=== PATIENT | female | born 1985 | race Caucasian/White ===

== ENCOUNTER 2021-05-03 15:48 | Emergency (ER) | payer OTHER, SELFPAY ==
[2021-05-03 16:06] VITALS: BP 174/113; PULSE 109; RESP 16; TEMP 36.8; O2SAT 100; BMI 74.8
--- NOTE | 2021-05-03 16:21 | ED.BACK ---
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 During COVID, patient was not sitting in her wheelchair. She intentionally lost over 100 lb. She has less having than she used to for sitting. She is a teacher, and has recently been back to work, and in the last 3 days sitting in her wheelchair 9 hours a day, the back pain has worsened. No fevers, no bowel or bladder incontinence, no IV drug use, no personal history of cancer. This feels similar to her other sciatic episodes that she has had. No trauma. MD elicited complaint: back pain Pertinent past history: prior back pain Onset (ago): day(s) (3) Timing: constant Severity: moderate Pain scale (0-10): 6 Similar Symptoms Previously: Yes Quality: burning and aching Location: left lower back Radiation: buttocks and left upper leg Exacerbating factors: none Relieving factors: none Associated symptoms: denies other symptoms Work related injury: No Related Data Previous Rx's Medication Instructions Recorded diazepam 5 mg tablet (Valium) 5 mg PO BID PRN 5 Days #10 tab 05/03/21 ketorolac 10 mg tablet 10 mg PO Q6H 5 Days #20 tab 05/03/21 oxycodone 5 mg capsule 5 mg PO Q6H 5 Days #20 cap 05/03/21 Allergies Allergy/AdvReac Type Severity Reaction Status Date / Time No Known Allergies Allergy Verified 05/03/21 16:06 Review of Systems Constitutional: Constitutional: Denies body ache(s), Denies chills, Denies fatigue, Denies fever(s), Denies headache(s), Denies malaise and Denies weakness Eyes: Eyes: Denies diplopia ENT: Denies vertigo, Denies dizziness, Denies otalgia, Denies headache(s), Denies mouth pain, Denies post nasal drip, Denies sinus pain, Denies sinus pressure, Denies sore throat and Denies throat swelling Cardiovascular: Cardiovascular: Denies chest pain, Denies syncope, Denies leg edema, Denies lightheadedness, Denies Loss of Consciousness, Denies palpitations and Denies dyspnea Respiratory: Respiratory: Denies chest congestion, Denies cough and Denies dyspnea Gastrointestinal: Gastrointestinal: Reports abdominal pain, Denies hematochezia, Denies constipation, Denies fecal incontinence, Denies diarrhea and Denies vomiting Genitourinary: Genitourinary: Denies dysuria, Denies urinary incontinence and Denies urinary urgency Musculoskeletal: Musculoskeletal: Reports back pain and Denies tingling Integumentary/Breasts: Skin/Breast: Denies erythema and Denies rash Neurologic: Denies confusion, Denies vertigo, Denies dizziness, Denies syncope, Denies headache(s), Reports radicular pain, Denies tingling, Denies paresthesias and Denies weakness Psychiatric: Psychiatric: Denies anxiety, Denies confusion and Denies depression Endocrine: Endocrine: Denies fatigue and Denies palpitations Allergic/Immunologic: Allergic/Immunologic: Denies throat swelling PMFSH Past Medical History Medical History (Updated 05/03/21 @ 20:20 by ZARINA Navarro) 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 Surgical History H/O hand surgery Previous section Social History Social History Advance Directives: No Advance Directives Information Provided: Yes Patient : No Physical Exam Vital Signs: Vital Signs: Last Vital Signs Temp 98.0 F 05/03/21 17:25 Pulse 90 05/03/21 19:07 Resp 16 05/03/21 19:07 BP 155/105 H 05/03/21 19:07 Pulse Ox 100 05/03/21 19:07 Body Mass Index 74.8 Const: General: healthy appearing, well developed, alert and awake; No confusion Nutritional Appearance: well nourished Orientation/consciousness: patient oriented x3 and No confusion Limitations: wheelchair Resp: Effort & Inspection: normal respiratory effort Auscultation: clear to auscultation bilaterally, no crackles, no rales, no rhonchi and no wheezes Cardio: Rate: regular rate Rhythm: regular rhythm Heart sounds: S1 normal heart sound present and S2 normal heart sound present : General: Yes no CVA tenderness Back/Spine/Pelvis: Back: no CVA tenderness Cervical Spine: normal cervical lordosis and cervical ROM normal Thoracic/Lumbar Spine: thoracic and lumbar spine normal to inspection, paraspinal muscle tenderness on the left in the lower lumbar, No thoraco-lumbar spasm, No thoracic spinal tenderness and No lumbar spinal tenderness Neuro: General: patient oriented x3, tone normal, moves all extremities and No confusion Extrem: Other: Patient does not have right lower extremity, left lower extremity ends at mid thigh. 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 On exam, patient is tender in her lower left lumbar paraspinous muscles, tender in her left buttock. Patient has intact motor strength and sensation in her left thigh. No vertebral point tenderness. Toradol and Flexeril given, will re-evaluate. Patient's pain has not resolved with medication, her blood pressure is now 187/109 with a heart rate of 103. Will give Valium and oxycodone and re-evaluate On re-evaluation, patient's blood pressure is 155/105. The patient feels the Valium and oxycodone helped. Patient has an appoitment with the spine clinic in June. Counseled patient to follow-up with her PCP in 5 days, will give know to return to work on Saturday. Gave return precautions of saddle paresthesias, incontinence of bowel or bladder, fevers, worsening intolerable pain. Discharge Plan Discharge Clinical Impression: Back pain Qualifiers: Back pain location: low back pain Chronicity: acute Back pain laterality: left Sciatica presence: with sciatica Sciatica laterality: sciatica of left side Qualified Code(s): M54.42 - Lumbago with sciatica, left side Patient Disposition: Home, Self-Care Instructions: Acute Low Back Pain (ED) Additional Instructions: Please fill prescription for Toradol(ketorolac), Valium, oxycodone. Please call your primary care provider tomorrow, I would like you to get in to see them within the next 5 days. Please call the spine clinic and tell them you had this Emergency Room appointment, perhaps they can move her appointment up earlier to be seen. Please return to emergency room if you have any numbness or tingling in your groin, continence of bowel or bladder, fevers, severe uncontrollable pain, or any other new or concerning symptoms Do not take any ibuprofen, Motrin, Aleve, or any ibuprofen containing substances for your taking the ketorolac Prescriptions: New diazepam [Valium] 5 mg tablet 5 mg PO BID PRN (Reason: pain) 5 Days Qty: 10 RF: 0 oxycodone 5 mg capsule 5 mg PO Q6H 5 Days Qty: 20 RF: 0 ketorolac 10 mg tablet 10 mg PO Q6H 5 Days Qty: 20 RF: 0 Stand Alone Forms: Work/School Release
[2021-05-03] MEDS: Cyclobenzaprine HCl 10 MG TABLET PO (16:41)
[2021-05-03] MEDS: Ketorolac Tromethamine 15 MG/ML VIAL 30 MG IM (16:42)
[2021-05-03 17:25] VITALS: BP 187/109; PULSE 103; RESP 16; TEMP 36.7; O2SAT 100
[2021-05-03] MEDS: oxyCODONE HCl Immed Release 5 MG TABLET PO (17:46)
[2021-05-03] MEDS: diazePAM 5 MG TABLET PO (17:46)
[2021-05-03 19:07] VITALS: BP 155/105; PULSE 90; RESP 16; O2SAT 100
== END 2021-05-03 20:38 | disposition home or self-care (01) ==
PROVIDERS: Emergency Provider Internal Medicine
DX: M54.42 Lumbago with sciatica, left side (principal); Z79.899 Other long term (current) drug therapy
CPT/HCPCS: 96372; 99284; J1885